=== PATIENT | male | born 1960 | race Caucasian/White ===

== ENCOUNTER 2018-12-13 17:30 | Emergency (ER) | payer OTHER, BC ==
[~2018-12-13] VITALS: Ht 180.3 cm; Wt 70.8 kg
[~2018-12-13 17:30] MED LIST: CLINDAMYCIN HC150 MG PO; NAPROSYN500 MG PO; PERCOCET 5-3251 EACH PO
[2018-12-13] MEDS ORDERED: ZITHROMAX250 MG PO (19:23)
== END 2018-12-13 19:45 | disposition home or self-care (01) ==
LOC: ED 17:30
DX: J20.9 Acute bronchitis, unspecified (principal); Z88.0 Allergy status to penicillin; Z88.8 Allergy status to other drugs, medicaments and biological substances; Z79.899 Other long term (current) drug therapy
CPT/HCPCS: 71046; 87880; 99283-25

== ENCOUNTER 2019-03-11 01:20 | Emergency (ER) | payer BC ==
[~2019-03-11] VITALS: Ht 180.3 cm; Wt 70.8 kg
[~2019-03-11 01:20] MED LIST changes: +ZITHROMAX250 MG PO
[2019-03-11] MEDS ORDERED: [UNRECOGNIZED DRUG - OTHER] (01:43)
[2019-03-11] MEDS ORDERED: BENADRYL25 MG PO (01:44)
[2019-03-11] MEDS ORDERED: HYDROXYZINE HCL50 MG PO (03:38)
[2019-03-11] MEDS ORDERED: PREDNISONE10 MG PO (03:38)
== END 2019-03-11 03:57 | disposition home or self-care (01) ==
LOC: ED 01:20
DX: L50.9 Urticaria, unspecified (principal); Z87.891 Personal history of nicotine dependence; Z88.0 Allergy status to penicillin; Z91.018 Allergy to other foods
CPT/HCPCS: 71046; 80053; 81001; 84443; 85025; 96374; 99283-25; J1200; J7512